=== PATIENT | female | born 1950 | race Caucasian/White ===

== ENCOUNTER 2021-09-28 20:38 | Emergency (ER) | payer MEDICARE, OTHER ==
[~2021-09-28] VITALS: Ht 165.1 cm; Wt 71.2 kg
[~2021-09-28 20:38] MED LIST: HYDROCHLOROTH12.5 MG PO; LIPITOR20 MG PO; SYNTHROID88 MCG PO
--- OUTSIDE RECORDS SUMMARY | 2021-09-28 20:46 | XMS ---
PreManage Notification: [facility] Animal Care Veterinarian Events No recent Security Events currently on file CRITERIA MET - ED - Positive COVID-19 Lab Result - [facility] C[facility] PROVIDERS There are no care providers on record at this time. Catrina has no Care Guidelines for this patient. Kena VISIT COUNT (12 MO.) 1 ANGELA Nunez TOTAL 1 NOTE: Visits indicate total known visits. ED/C VISIT TRACKING (12 MO.) 09/28/2021 20:38 ANGELA Jiménez OR TYPE: Emergency COMPLAINT: - ABD PAIN,DIZZY INPATIENT VISIT TRACKING (12 MO.) No inpatient visits to display in this time frame [email or web address]
[2021-09-28] MEDS ORDERED: OMEPRAZOLE20 MG PO (23:57)
== END 2021-09-29 01:55 | disposition home or self-care (01) ==
LOC: ED 20:38
DX: R10.31 Right lower quadrant pain (principal); I10 Essential (primary) hypertension; E03.9 Hypothyroidism, unspecified; E78.00 Pure hypercholesterolemia, unspecified; Z87.891 Personal history of nicotine dependence; Z79.890 Hormone replacement therapy; Z79.899 Other long term (current) drug therapy
CPT/HCPCS: 74177; 80053; 81001; 83690; 85025; 96375; 96376; 99284-25; J1170; J2405; Q9967